=== PATIENT | female | born 1980 | race Caucasian/White ===

== ENCOUNTER 2020-02-26 07:39 | Emergency (ER) | payer BC ==
[2020-02-26] MEDS ORDERED: KETOROLAC TROMETHAMINE INJ/PF 30 MG/1 ML SDV IV ONE (09:20)
--- NOTE | 2020-02-26 09:20 | ER Document Report ---
ED Extremity Problem, Upper - General Chief Complaint: Shoulder Pain Stated Complaint: RIGHT SHOULDER PAIN Time Seen by Provider: 02/26/20 09:03 Primary Care Provider: RICH THOMPSON DO [ACTIVE STAFF] - Follow up in 3-5 days - [facility] Notes: Patient is a 39-year-old female with a past medical history of chronic neck pain and bone spurs who presents with worsening of her neck pain. Patient states that on Wednesday, she was at work and developed a sharp burning and stabbing pain in her lower cervical spine that radiates down her right shoulder and right arm. She states that her right arm is weak and she is unable to lift it. She also has numbness in her right arm. Patient has been working with physical therapy for several weeks. Her doctor wanted to order an MRI but has been unable to obtain it due to insurance. Patient is very worried that she has a ruptured or herniated disc. She states his pain is much worse than her normal pain. She also has weakness to her right arm which is not normal. Patient denies any trauma. - Related Data Allergies/Adverse Reactions: No Known Allergies Allergy (Verified 02/26/20 07:52) Past Medical History - General Information source: Patient, Relative - Social History Smoking Status: Current Every Day Smoker Frequency of alcohol use: Occasional Family History: Reviewed & Not Pertinent Review of Systems - Review of Systems Notes: CONSTITUTIONAL: No fever, fatigue or weight loss. SKIN: No rash. HENT: No congestion, ear pain, or sore throat. EYES: No recent vision problems or eye pain. CARDIOVASCULAR: No chest pain or edema. RESPIRATORY: No cough, shortness of breath, congestion, or wheezing. GASTROINTESTINAL: No abdominal pain MUSCULOSKELETAL: Positive for shoulder pain, neck pain, and right arm weakness. NEUROLOGIC: No seizures. No headache, focal weakness or sensory changes. HEMATOLOGIC: No unusual bruising or bleeding. PSYCHIATRIC: No depression or anxiety. Physical Exam - Vital signs Vitals: Temp Pulse Resp BP Pulse Ox 98.2 F 97 17 129/74 H 100 02/26/20 07:52 02/26/20 07:52 12 07:52 02/26/20 07:52 02/26/20 07:52 - General General appearance: Appears well Notes: VITAL SIGNS: Within normal limits. GENERAL: No acute distress, non-toxic appearance. Appears uncomfortable due to pain. HEAD: Normal with no signs of head trauma. EYES: EOMI, conjunctiva normal, no discharge. EARS: Hearing grossly intact. NOSE: Normal. NECK: Discomfort to palpation of lower cervical spine with pain radiation down her right shoulder. CHEST: Clear breath sounds bilaterally. CARDIAC: Regular rate and rhythm. S1 and S2, without murmurs, gallops, or rubs. VASCULAR: No Edema. Strong radial pulses bilaterally. ABDOMEN: Normal and soft. MUSCULOSKELETAL: ROM limited of right upper extremity due to pain. Discomfort with range of motion of right upper extremity. Pain with passive range of motion of right upper extremity. [employer] Office Supervisor strength intact 5/5 bilaterally. NEUROLOGICAL: Alert and oriented x 3. Speech normal. Follows commands appropriately. PSYCHIATRIC: Normal Affect, judgement and mood. SKIN: Normal appearance with no rashes or lesions. Course - Re-evaluation Re-evalutation: 02/26/20 17:51 Patient states that her doctor has wanted her to have an MRI. She states that her right arm feels more weak and this is new since Wednesday. MRI was ordered. It does show foraminal stenosis. Patient was given pain medicine and feels better. I discussed all results with the patient and gave her a copy of her MRI results. She was told to follow-up with her PCP. She may need to continue physical therapy or be referred to a specialist. I did give her the number for orthopedics to follow-up with. Patient was given a small prescription for hydrocodone after checking her [employer]. She was also given Flexeril and a steroid taper pack. Patient was instructed not to drive when taking the Flexeril or hydrocodone. She was given strict return precautions. Her and her brother are agreeable to the plan. - Vital Signs Vital signs: Temp Pulse Resp BP Pulse Ox 98.2 F 86 16 126/76 H 100 02/26/20 07:52 02/26/20 13:54 02/26/20 13:54 02/26/20 13:54 02/26/20 13:54 - Laboratory Result Diagrams: 02/26/20 10:01 02/26/20 10:01 Laboratory results interpreted by me: 02/26/20 10:01 Sodium 135.6 L - Diagnostic Test Radiology reviewed: Image reviewed, Reports reviewed - EKG Interpretation by Me EKG shows normal: Sinus rhythm Rate: Normal Rhythm: NSR When compared to previous EKG there are: Previous EKG unavailable Additional EKG results interpreted by me: 02/26/20 10:22 Minus rhythm at a rate of 89. QTc 448. No acute ST changes. No previous EKG immediately available for comparison. Discharge - Discharge Clinical Impression: Foraminal stenosis of cervical region, Radiculopathy affecting upper extremity Condition: Stable Disposition: HOME, SELF-CARE Instructions: Neck Injury (Cervical Strain) ([facility]) Additional Instructions: Please follow-up with your doctor. I have provided a printout of your MRI results. Please return to the ER for any worsening symptoms. Do not drive after taking your hydrocodone or Flexeril as it may make you fatigued. I have also provided the number for orthopedics for follow-up. Prescriptions: Cyclobenzaprine HCl [Flexeril 10 mg Tablet] 10 mg PO BID PRN 10 Days #10 tablet PRN Reason: Lidocaine [Lidocaine Pain Relief] 1 each TP DAILY PRN #4 adh..patch PRN Reason: Methylprednisolone [Medrol Dosepack (4 mg/Tab) 21 Tab/Dosepak] 4 mg PO ASDIR #21 tab.ds.pk Hydrocodone/Acetaminophen [[place] 5-325 mg Tablet] 1 tab PO Q8H PRN 10 Days #8 tablet PRN Reason: Referrals: RICH THOMPSON DO [ACTIVE STAFF] - Follow up in 3-5 days
[2020-02-26] MEDS ORDERED: KETOROLAC TROMETHAMINE 60 MG/2 ML SDV IM ONE (10:06)
[2020-02-26 10:28] LABS: ABSOLUTE EOSINOPHILS # (AUTO) 0.3 10^3/uL (0.0-0.6); ABSOLUTE LYMPHOCYTES (AUTO) 1.2 10^3/uL (0.5-4.7); ABSOLUTE MONOCYTES (AUTO) 0.3 10^3/uL (0.1-1.4); ABSOLUTE NEUT (AUTO) 3.6 10^3/uL (1.7-8.2); BASOPHILS % (AUTO) 0.9 % (0-2); EOSINOPHILS % (AUTO) 5.3 % (0-6); HEMATOCRIT 38.4 % (36.0-47.0); HEMOGLOBIN 12.9 g/dL (12.0-15.5); LYMPHOCYTES % (AUTO) 21.8 % (13-45); MEAN CORPUSCULAR HEMOGLOBIN 30.7 pg (27.0-33.4); MEAN CORPUSCULAR HGB CONC 33.7 g/dL (32.0-36.0); MEAN CORPUSCULAR VOLUME 91 fl (80-97); PLATELET COUNT 247 10^3/uL (150-450); RED CELL DISTRIBUTION WIDTH 13.4 % (11.5-14.0); TOTAL CELLS COUNTED % (AUTO) 100 %; WHITE BLOOD COUNT 5.4 10^3/uL (4.0-10.5)
[2020-02-26 10:57] LABS: ALBUMIN 4.4 g/dL (3.5-5.0); ALKALINE PHOSPHATASE 42 U/L (38-126); ANION GAP 6 (5-19); ASPARTATE AMINO TRANSFERASE 30 U/L (14-36); BILIRUBIN,DIRECT 0.1 mg/dL (0.0-0.4); BILIRUBIN,TOTAL 0.5 mg/dL (0.2-1.3); BLOOD UREA NITROGEN 14 mg/dL (7-20); CALCIUM 9.3 mg/dL (8.4-10.2); CARBON DIOXIDE 25 mmol/L (22-30); CHLORIDE 105 mmol/L (98-107); GLUCOSE 96 mg/dL (75-110); POTASSIUM 4.3 mmol/L (3.6-5.0)
[2020-02-26] MEDS ORDERED: HYDROCODONE/ACETAMINOPHEN 5-325 MG TABLET PO ONE (11:40)
--- NOTE | 2020-02-26 12:04 | RADIOLOGY REPORT (SQ) ---
EXAM DESCRIPTION: MRI CERVICAL SPINE WITHOUT IMAGES COMPLETED DATE/TIME: 02/26/2020 11:29 am REASON FOR STUDY: neck pain radiating down right arm, weakness COMPARISON: None. TECHNIQUE: Sagittal and Axial imaging includes T1, T2, STIR and gradient echo sequences. LIMITATIONS: None. FINDINGS: ALIGNMENT: There is reversal of the normal lordotic curvature of the cervical spine. Ther e is no craniocervical atlantoaxial dissociation. VERTEBRAE: Intact. BONE MARROW: Low T1/low T2 signal in the dense without an associated abnormality on the STIR sequence . DISCS: The C5-C6 and C6-C7 intervertebral disc spaces are narrowed and desiccated. HARDWARE: None in the spine. CORD AND BASE OF BRAIN: Normal in caliber and signal intensity. SOFT TISSUES: No acute gross abnormality. C1-C2: No spinal stenosis. C2-C3: Mild left foraminal stenosis due to uncovertebral hypertrophy. C3-C4: Disc osteophyte complex eccentric to the right without mass effect upon the cord and mild righ t foraminal stenosis due to a combination of uncovertebral hypertrophy and facet joint arthropathy. C4-C5: Disc osteophyte complex without mass effect upon the cord and mild bilateral foraminal stenosi s due to uncovertebral hypertrophy. C5-C6: Disc osteophyte complex that effaces the ventral CSF without mass effect upon the cord and mod erate to severe left foraminal stenosis due to a combination of facet joint arthropathy and uncoverte bral hypertrophy. C6-C7: Effacement of the ventral and dorsal CSF due to a combination of a disc osteophyte complex and hypertrophy of the ligamentum flavum - there is no mass effect upon the cord ; and severe right and moderate to severe left foraminal stenosis due to a combination of uncovertebral hypertrophy and face t joint arthropathy. C7-T1: No spinal or foraminal stenosis. UPPER THORACIC: Intact. OTHER: No other findings. IMPRESSION: 1. No acute fracture or malalignment of the cervical spine. 2. Degenerative spondylosis and facet joint arthropathy of the cervical spine with high-grade forami nal stenosis on the left at C5-C6 and bilaterally at C6-C7. TECHNICAL DOCUMENTATION: JOB ID: [id number] 2010 [employer]- All Rights Reserved Reading location - IP/workstation name: [email or web address]
[2020-02-26] MEDS ORDERED: MORPHINE SULFATE 10 MG/ML INJ IM ONE (12:54)
[2020-02-26 13:55] VITALS: BP 126/76
--- NOTE | 2020-02-26 16:43 | EKG REPORT ---
SEVERITY:- NORMAL ECG - SINUS RHYTHM : Confirmed by: Shabbir Scherer 26-Feb-2020 16:43:01
== END 2020-02-26 13:54 | disposition home or self-care (01) ==
LOC: ER 07:39
DX: M48.02 Spinal stenosis, cervical region (principal); M54.12 Radiculopathy, cervical region; M25.511 Pain in right shoulder; M54.2 Cervicalgia; G89.29 Other chronic pain; M79.601 Pain in right arm; M62.81 Muscle weakness (generalized); F17.200 Nicotine dependence, unspecified, uncomplicated
CPT/HCPCS: 93005; 99285; 96372; 36415; 84703; 85025; 80053; 84484; 72141; 93010; J1885; J2270